=== PATIENT | female | born 1985 ===

== ENCOUNTER 2023-10-21 08:01 | Outpatient (CLI) | payer OTHER ==
[~2023-10-21] VITALS: Ht 165.1 cm; Wt 82.1 kg
[2023-10-21 09:43] LABS: HEMATOCRIT 39.3 % (36.0-45.00); HEMOGLOBIN 13.4 g/dL (12.0-15.00); MEAN CELL VOLUME 86.1 fL (80.00-100.00); MEAN CORPUSCULAR HEMOGLOBIN 29.4 pg (27.00-32.0); MEAN CORPUSCULAR HGB CONC 34.1 g/dl (32.0-36.0); PLATELET COUNT 375 K/uL (150-450); RED BLOOD COUNT 4.57 M/uL (4.00-6.00); RED CELL DISTRIBUTION WIDTH 13.4 % (11.5-14.5)
[2023-10-21] MEDS ORDERED: CLONAZEPAM0.5 M1 PO (09:51)
[2023-10-21] MEDS ORDERED: ACID REDUCER20 M1 PO (09:51)
[2023-10-21] MEDS ORDERED: KETO10TA2 PO (09:52)
[2023-10-21 10:08] LABS: PARTIAL THROMBOPLASTIN TIME 25.4 SECONDS (22.0-34.0); PROTHROMBIN TIME 10.5 SECONDS (9.0-11.5)
[2023-10-21 10:23] LABS: ALBUMIN 3.8 gm/dL (3.4-5.0); BILIRUBIN TOTAL 0.34 mg/dL (0.3-1.2); CALCIUM 9.8 mg/dL (8.5-10.1); CREATININE SERUM 0.68 mg/dL (0.55-1.02); GFR 97.36; GLOBULINA 3.9 G/DL (2.4-3.5); POTASSIUM 4.1 mEq/L (3.5-5.1); TOTAL PROTEIN 7.7 gm/dL (6.4-8.2)
[2023-10-21 10:59] LABS: URINE APPEARANCE Clear; URINE BILIRRUBIN Negative (NEGATIVE); URINE BLOOD Moderate; URINE COLOR Yellow; URINE GLUCOSE Negative (NEGATIVE); URINE KETONE Trace (NEGATIVE); URINE LEUKOCYTE Negative; URINE NITRATE Negative; URINE PROTEIN Negative (NEGATIVE)
[2023-10-21 11:06] LABS: URINE EPITHELIAL CELLS 13.1 uL (0.0-38.8); URINE RBC 27.3 uL (0.0-20.8); URINE WBC 8.4 uL (0.0-23.2)
[2023-10-21 11:10] LABS: URINE CAST 0.76 uL (0.0-1.40)
== END 2023-10-21 08:02 | disposition home or self-care (01) ==
LOC: RAD 08:01 → ADM 08:45 → EDSTATUS 10-25 08:45 → CIR.AMB 10-25 08:45
PROVIDERS: ATTEND Specialist
DX: K80.10 Calculus of gallbladder with chronic cholecystitis without obstruction (principal)

== ENCOUNTER 2024-05-08 05:11 | Day surgery (SDC) | payer OTHER ==
[2024-05-04 10:22] LABS: HEMATOCRIT 42.2 % (36.0-45.00); MEAN CELL VOLUME 87.6 fL (80.00-100.00); MEAN CORPUSCULAR HEMOGLOBIN 29.1 pg (27.00-32.0); MEAN CORPUSCULAR HGB CONC 33.2 g/dl (32.0-36.0); PLATELET COUNT 355 K/uL (150-450); RED BLOOD COUNT 4.82 M/uL (4.00-6.00); RED CELL DISTRIBUTION WIDTH 13.5 % (11.5-14.5)
[2024-05-04 10:29] VITALS: BP 120/82
[2024-05-04 10:32] LABS: URINE APPEARANCE Clear; URINE BILIRRUBIN Negative (NEGATIVE); URINE BLOOD Negative; URINE COLOR Yellow; URINE GLUCOSE Negative (NEGATIVE); URINE KETONE Negative (NEGATIVE); URINE LEUKOCYTE Negative; URINE NITRATE Negative; URINE PROTEIN Negative (NEGATIVE); URINE UROBILINOGEN 0.2 E.U./dl
[2024-05-04 10:34] LABS: URINE BACTERIA 276.5 uL (0.0-1933); URINE EPITHELIAL CELLS 40.1 uL (0.0-38.8); URINE RBC 8.8 uL (0.0-20.8); URINE WBC 6.8 uL (0.0-23.2)
[2024-05-04 10:43] LABS: URINE CAST 0.44 uL (0.0-1.40)
[2024-05-04 11:09] LABS: PARTIAL THROMBOPLASTIN TIME 28.7 SECONDS (22.0-34.0); PROTHROMBIN TIME 10.9 SECONDS (9.0-11.5)
[2024-05-04 11:24] LABS: ALBUMIN 3.7 gm/dL (3.4-5.0); BILIRUBIN TOTAL 0.34 mg/dL (0.3-1.2); CALCIUM 9.4 mg/dL (8.5-10.1); CREATININE SERUM 0.64 mg/dL (0.55-1.02); GFR 103.85; GLOBULINA 3.9 G/DL (2.4-3.5); POTASSIUM 4.11 mEq/L (3.5-5.1); TOTAL PROTEIN 7.6 gm/dL (6.4-8.2)
[~2024-05-08] VITALS: Ht 152.4 cm; Wt 5.0 kg
[~2024-05-08 05:11] MED LIST: ACID REDUCER20 M1 PO; CLONAZEPAM0.5 M1 PO; KETO10TA2 PO
[2024-05-08] MEDS ORDERED: BUPIVACAINE HCL/MPF 0.5% 30ML VIAL ONE (06:59)
[2024-05-08] MEDS ORDERED: CEFAZOLIN SODIUM 1,000 MG VIAL ONE (06:59)
[2024-05-08] MEDS ORDERED: BUPIVACAINE HCL/PF 0.25% 30ML VIAL InF ONE (08:45)
[2024-05-08] MEDS ORDERED: CEFAZOLIN SODIUM 1,000 MG VIAL IV ONE (08:45)
[2024-05-08] MEDS ORDERED: SUGAMMADEX SODIUM 200 MG/2 ML VIAL IV ONE (09:40)
[2024-05-08] MEDS ORDERED: MORPHINE SULFATE 4 MG/ML VIAL IV ONE ×2 (10:25→10:55)
[2024-05-08] MEDS ORDERED: RINGERS SOLUTION,LACTATED 1,000 ML IV SCH (10:30)
[2024-05-08] MEDS ORDERED: FAMOTIDINE/PF 20 MG/10 ML SYRINGE IV SCH (10:30)
[2024-05-08] MEDS ORDERED: CEFAZOLIN SODIUM 1,000 MG VIAL IV NR (10:30)
[2024-05-08] MEDS ORDERED: FAMOTIDINE/PF 20 MG/2 ML VIAL ONE (10:39)
== END 2024-05-08 14:05 | disposition home or self-care (01) ==
LOC: CIR.AMB 05:11 → SURH 05:11 → O/R 05:11 → SURH 08:45 → EDSTATUS 08:45 → SURH 09:30 → O/R 14:05 → CIR.AMB 14:05
PROVIDERS: ATTEND Specialist
DX: K80.10 Calculus of gallbladder with chronic cholecystitis without obstruction (principal)